=== PATIENT | male | born 1975 | race African-American/Black ===

== ENCOUNTER 2017-12-19 04:24 | Emergency (ER) | payer OTHER ==
--- NOTE | 2017-12-19 05:03 | PDOC ---
History of Present Illness - General History Source: Patient Exam Limitations: No Limitations - History of Present Illness Initial Comments: 12/19/17 05:34 The patient is a 42 year old male with no significant PMH who presents to the emergency department with right leg pain beginning approximately 4 days ago. The patient describes his right leg pain as originating in the right groin area with radiation to the back of his right thigh. He denies calf discomfort. The patient notes he has had periodic episodes of diffuse numbness to his extremities but notes this episode is much longer and more intense in his right leg than previously, prompting his visit. The patient specifically denies any history of HTN or diabetes. The patient denies any recent trauma or heavy lifting. The patient denies chest pain, shortness of breath, headache and dizziness. Denies fever, chills, nausea, vomit, diarrhea and constipation. Denies dysuria, frequency, urgency and hematuria. Allergies: Penicillins Past surgical history: None reported. Social history: Significant marijuana use. Current someday smoker. No reported alcohol use. PCP: Dr. Alan <Ron Du - Last Filed: 12/19/17 05:34> - General History Source: Patient <JaxZhen - Last Filed: 12/19/17 19:38> - General Stated Complaint: RT LEG PAIN Time Seen by Provider: 12/19/17 04:58 Past History <Ron Du - Last Filed: 12/19/17 05:34> <Zhen Camara - Last Filed: 12/19/17 19:38> - Past Medical History Allergies/Adverse Reactions: Allergies Allergy/AdvReac Type Severity Reaction Status Date / Time Penicillins Allergy Verified 12/19/17 05:09 Home Medications: Ambulatory Orders Acetaminophen W/ Codeine #3 [Tylenol # 3 -] 1 tab PO BID #10 tablet MDD 2 Lidocaine 5% Patch [Lidoderm Patch -] 1 patch TP DAILY PRN #30 patch 12/19/17 Methocarbamol [Robaxin -] 500 mg PO TID PRN #30 tablet 12/19/17 Review of Systems - Review of Systems Able to Perform ROS?: Yes Comments:: 12/19/17 05:34 CONSTITUTIONAL: Absent: fever, chills, diaphoresis, generalized weakness, malaise, loss of appetite HEENT: Absent: rhinorrhea, nasal congestion, throat pain, throat swelling, difficulty swallowing, mouth swelling, ear pain, eye pain, visual Changes CARDIOVASCULAR: Absent: chest pain, syncope, palpitations, irregular heart rate, lightheadedness , peripheral edema RESPIRATORY: Absent: cough, shortness of breath, dyspnea with exertion, orthopnea, wheezing, stridor, hemoptysis GASTROINTESTINAL: Absent: abdominal pain, abdominal distension, nausea, vomiting, diarrhea, constipation, melena, hematochezia GENITOURINARY: Absent: dysuria, frequency, urgency, hesitancy, hematuria, flank pain, genital pain MUSCULOSKELETAL: (+) Right leg pain. Absent: arthralgia, joint swelling SKIN: Absent: rash, itching, pallor HEMATOLOGIC/IMMUNOLOGIC: Absent: easy bleeding, easy bruising, lymphadenopathy, frequent infections ENDOCRINE: Absent: unexplained weight gain, unexplained weight loss, heat intolerance, cold intolerance NEUROLOGIC: Absent: headache, focal weakness or paresthesias, dizziness, unsteady gait, seizure, mental status changes, bladder or bowel incontinence PSYCHIATRIC: Absent: anxiety, depression, suicidal or homicidal ideation, hallucinations. <Ron Du - Last Filed: 12/19/17 05:34> *Physical Exam - Vital Signs Last Vital Signs Temp Pulse Resp BP Pulse Ox 98.6 F 51 L 14 130/80 100 12/19/17 05:10 12/19/17 05:10 12/19/17 05:10 12/19/17 05:10 12/19/17 05:10 - Physical Exam Comments: 12/19/17 05:35 GENERAL: Well developed, well nourished. Awake and alert. No acute distress. HEENT: Normocephalic, atraumatic. PERRLA, EOMI. No conjunctival pallor. Sclera are non- icteric. Moist mucous membranes. Oropharynx is clear. NECK: Supple. Full ROM. No JVD. Carotid pulses 2+ and symmetric, without bruits. No thyromegaly. No lymphadenopathy. CARDIOVASCULAR: Regular rate and rhythm. No murmurs, rubs, or gallops. Distal pulses are 2+ and symmetric. PULMONARY: No evidence of respiratory distress. Lungs clear to auscultation bilaterally. No wheezing, rales or rhonchi. ABDOMINAL: Soft. Non-tender. Non-distended. No rebound or guarding. No organomegaly. Normoactive bowel sounds. MUSCULOSKELETAL: (+) Diffuse tenderness to right thigh, anterior greater than posterior with tenderness to popliteal fossa. No calf tenderness. Normal range of motion at all joints. No bony deformities. No CVA tenderness. EXTREMITIES: No cyanosis. No clubbing. No edema. No calf tenderness. SKIN: Warm and dry. Normal capillary refill. No rashes. No jaundice. NEUROLOGICAL: Alert, awake, appropriate. Cranial nerves 2-12 intact. No deficits to light touch and temperature in face, upper extremities and lower extremities. No motor deficits in the in face, upper extremities and lower extremities. Normoreflexic in the upper and lower extremities. Normal speech. Toes are downgoing bilaterally. Gait is normal without ataxia. PSYCHIATRIC: Cooperative. Good eye contact. Appropriate mood and affect. <Ron Du - Last Filed: 12/19/17 05:34> Medical Decision Making - Medical Decision Making 12/19/17 19:37 Dr. Camara: The scribe's documentation has been prepared under my direction and personally reviewed by me in its entirery. I confirm that the note above accurately reflects all work, treatment, procedures, and medical decision making performed by me. 12/19/17 19:37 Doppler was negative for DVT of right leg, as was pt right knee xray. Pt discharged to follow up with his pcp for further evaluation. <Zhen Camara - Last Filed: 12/19/17 19:38> *DC/Admit/Observation/Transfer - Attestations Scribe Attestion: 12/19/17 05:35 Documentation prepared by Ron Du, acting as emergency medical service manager for Zhen Camara DO. <Ron Du - Last Filed: 12/19/17 05:34> - Discharge Dispostion Admit: No <Zhen Camara - Last Filed: 12/19/17 19:38> Diagnosis at time of Disposition: Leg pain, right - Discharge Dispostion Disposition: HOME Condition at time of disposition: Good - Prescriptions Prescriptions: Acetaminophen W/ Codeine #3 [Tylenol # 3 -] 1 tab PO BID #10 tablet MDD 2 Lidocaine 5% Patch [Lidoderm Patch -] 1 patch TP DAILY PRN #30 patch PRN Reason: Pain Methocarbamol [Robaxin -] 500 mg PO TID PRN #30 tablet PRN Reason: Lower Back Pain - Referrals Referrals: Al Alan MD [Primary Care Provider] - Chava Nguyen MD [Staff Physician] - - Patient Instructions Printed Discharge Instructions: DI for Leg Pain Additional Instructions: Mr. pantoja Thank you for coming in to the ER today Please take medications as prescribed please be sure to follow up with your primary care physician and the ict security specialist within 2-3 days Return to the Er for any other concerns or complaints - Post Discharge Activity Forms/Work/School Notes: Back to Work
[2017-12-19] MEDS ORDERED: KETOROLAC TROMETHAMINE 60 MG/2 ML VIAL IM ONE (05:09)
[2017-12-19 05:12] VITALS: BMI 31.1
[2017-12-19 07:08] VITALS: TEMP 97.9
[2017-12-19 10:26] VITALS: BP 124/76; PULSE 50
--- NOTE | 2017-12-19 10:41 | PDOC ---
*Physical Exam - Vital Signs Last Vital Signs Temp Pulse Resp BP Pulse Ox 97.9 F 50 L 18 124/76 100 12/19/17 07:07 12/19/17 10:24 12/19/17 10:24 12/19/17 10:24 12/19/17 10:24 ED Treatment Course - RADIOLOGY Radiology Studies Ordered: Category Date Time Status KNEE 3 POS-RIGHT [RAD] Stat Radiology 12/19/17 08:03 Completed DUPLEX VASCUL US-1 LEG [US] Stat Ultrasound 12/19/17 08:03 Completed - Medications Given in the ED: ED Medications Discontinued Medications Generic Name Dose Route Start Last Admin Trade Name Anamaria PRN Reason Stop Dose Admin Ketorolac Tromethamine 60 mg 12/19/17 05:09 12/19/17 05:34 Toradol Injection - IM 12/19/17 05:10 60 mg ONCE ONE Administration Medical Decision Making - Medical Decision Making 12/19/17 10:34 I received this patient in sign out at 7:00AM This is a 42-year-old male who is otherwise healthy and presents to the emergency department with a complaint of right leg pain. He was seen by his private care physician who did an x-ray pelvis and hip. These were reportedly normal. States that his symptoms started about 2 days ago. He noted the pain started in his knee and radiates up the leg. He denies any trauma. He denies fevers or chills. He denies skin redness. He has not taken any medications for pain. Patient is awaiting ultrasound of the right lower extremity He was given Toradol for pain Patient states his leg still hurts No swelling Muscles not firm or tender when I palpate Pain worsens when patient stands, he describes it as "tightening, cramping" 12/19/17 10:42 X-ray demonstrates: fabella, fracture or subluxation, no effusion Ultrasound images: No evidence of DVT in the right lower extremity Will discharged home. Will ask patient to follow up with orthopedics Return to the emergency part for any other concerns or complaints Clinical impression: Right lower extremity pain, initial presentation *DC/Admit/Observation/Transfer Diagnosis at time of Disposition: Leg pain, right - Discharge Dispostion Disposition: HOME Condition at time of disposition: Good Admit: No - Referrals Referrals: Al Alan MD [Primary Care Provider] - Chava Nguyen MD [Staff Physician] - - Patient Instructions Printed Discharge Instructions: DI for Leg Pain Additional Instructions: Mr. pantoja Thank you for coming in to the ER today Please take medications as prescribed please be sure to follow up with your primary care physician and the drug safety specialist within 2-3 days Return to the Er for any other concerns or complaints - Post Discharge Activity Forms/Work/School Notes: Back to Work
== END 2017-12-19 10:58 | disposition home or self-care (01) ==
LOC: JER 04:24
PROC: 3E0233Z Introduction of Anti-inflammatory into Muscle, Percutaneous Approach (ICD-10-PCS; principal; 2017-12-19)
DX: M79.604 Pain in right leg (principal)
CPT/HCPCS: 73562-TC-RT; 93971-TC; 99281-25

== ENCOUNTER 2022-01-24 04:36 | Day surgery (SDC) | payer OTHER ==
[2022-01-18 10:34] VITALS: BMI 31.2
[2022-01-24 09:36] VITALS: TEMP 98
[2022-01-24 10:00] VITALS: BP 146/84; PULSE 55
== END 2022-01-24 10:40 | disposition home or self-care (01) ==
LOC: JASU-ENDO 04:36
PROVIDERS: ATTEND Internal Medicine Gastroenterology
PROC: 0DBL8ZX Excision of Transverse Colon, Via Natural or Artificial Opening Endoscopic, Diagnostic (ICD-10-PCS; 2022-01-24)
PROC: 0DBN8ZX Excision of Sigmoid Colon, Via Natural or Artificial Opening Endoscopic, Diagnostic (ICD-10-PCS; principal; 2022-01-24 08:30)
DX: Z12.11 Encounter for screening for malignant neoplasm of colon (principal); K57.30 Diverticulosis of large intestine without perforation or abscess without bleeding; D12.5 Benign neoplasm of sigmoid colon; D12.3 Benign neoplasm of transverse colon; K64.8 Other hemorrhoids
CPT/HCPCS: 88305-TC